=== PATIENT | female | born 1960 | race Caucasian/White ===

== ENCOUNTER 2018-07-30 20:58 | Emergency (ER) | payer MEDICARE, OTHER ==
[2018-07-30 21:24] VITALS: BP 139/60
[2018-07-30] MEDS ORDERED: Doxycycline 100 MG Cap PO ONE (21:31)
--- NOTE | 2018-07-30 21:38 | EDM.PDOC ---
ED HPI GENERAL MEDICAL PROBLEM - General Chief Complaint: Skin Complaint Stated Complaint: 2 PAINFUL LUMPS ON LEFT ARM Time Seen by Provider: 07/30/18 21:16 Source of Information: Reports: Patient, RN Notes Reviewed History Limitations: Reports: No Limitations - History of Present Illness INITIAL COMMENTS - FREE TEXT/NARRATIVE: Patient is a 58-year-old female who presents to the ED for the evaluation of 2 painful lumps on her left arm. One is located on the dorsum of her left hand, the other is located on the dorsum of her upper left forearm. She states that last Sunday, 8 days ago, she hit the door of a pickup with her hand and had this resultant lump. She noted 2 days later that she hit her left arm again and another lump appeared. She now notes that the lump on her hand is turn purple in color, and is warm to the touch with some slight reddening around it. She notes it is getting to be more painful to move her left wrist at this time. She notes she is on Coumadin, and does appear to be bruised all the way up into her elbow. It is from [place], her primary care provider is Leticia Zamora. She states she has not taken any pain medications for this. He also notes that she is not an IV drug user. Hand Pain Score (Numeric/FACES): 8 - Related Data Allergies Allergy/AdvReac Type Severity Reaction Status Date / Time Penicillins Allergy Rash Verified 07/30/18 21:14 Home Meds: Home Meds Aspirin [Children's Aspirin] 81 mg PO DAILY 07/30/18 [History] ClonazePAM [KlonoPIN] 0.5 mg PO DAILY 07/30/18 [History] Doxycycline [Vibramycin] 100 mg PO BID #19 tab 07/30/18 [Rx] Escitalopram [Lexapro] 20 mg PO DAILY 07/30/18 [History] Lisinopril [Prinivil] 10 mg PO DAILY 07/30/18 [History] Metoprolol Succinate [Toprol Xl] 25 mg PO DAILY 07/30/18 [History] Omeprazole 20 mg PO DAILY 07/30/18 [History] Warfarin [Coumadin] 5 mg PO DAILY 07/30/18 [History] buPROPion [buPROPion XL] 150 mg PO DAILY 07/30/18 [History] Past Medical History HEENT History: Reports: Impaired Vision Cardiovascular History: Reports: High Cholesterol Respiratory History: Reports: None Other Respiratory History: 25pk yr smoker Genitourinary History: Reports: None [employer] History: Reports: Musculoskeletal History: Reports: Arthritis Other Musculoskeletal History: multiple level degeneration disease Neurological History: Reports: CVA Psychiatric History: Reports: Anxiety, Depression Endocrine/Metabolic History: Reports: None Hematologic History: Reports: None Immunologic History: Reports: None Oncologic (Cancer) History: Reports: None Dermatologic History: Reports: None - Infectious Disease History Infectious Disease History: Reports: Measles - Past Surgical History Respiratory Surgical History: Reports: None GI Surgical History: Reports: Appendectomy Female Surgical History: Reports: Section Social & Family History - Family History Family Medical History: Noncontributory Endocrine/Metabolic: Reports: Diabetes, type II - Caffeine Use Caffeine Use: Reports: Coffee - Recreational Drug Use Recreational Drug Use: No ED ROS GENERAL - Review of Systems Review Of Systems: See Below Constitutional: Denies: Fever, Chills Respiratory: Reports: No Symptoms Cardiovascular: Reports: No Symptoms Endocrine: Reports: No Symptoms GI/Abdominal: Reports: No Symptoms : Reports: No Symptoms Musculoskeletal: Reports: Arm Pain (left upper forearm), Hand Pain (left hand) Skin: Reports: Bruising, Erythema, Change in Color (mild bruising to entire left arm.). Denies: Wound Neurological: Reports: No Symptoms Psychiatric: Reports: No Symptoms Hematologic/Lymphatic: Reports: No Symptoms Immunologic: Reports: No Symptoms ED EXAM, SKIN/RASH Exam: See Below Exam Limited By: No Limitations General Appearance: Alert, WD/WN, No Apparent Distress Respiratory/Chest: No Respiratory Distress, Lungs Clear, Normal Breath Sounds, No Accessory Muscle Use, Chest Non-Tender Cardiovascular: Normal Peripheral Pulses, Regular Rate, Rhythm, No Murmur Peripheral Pulses: 3+: Radial (L), Radial (R) Extremities: Normal Capillary Refill, Joint Swelling (left wrist), Limited Range of Motion (of left wrist d/t pain), Increased Warmth (around lump on dorsum of left hand), Redness (to dorsum of left hand) Neurological: Alert, Oriented, Normal Cognition, No Motor/Sensory Deficits Psychiatric: Normal Affect, Normal Mood Skin: Warm, Dry, Intact, Ecchymosis (The entire left arm is ecchymotic up until the elbow. There are 2 discrete lumps, one on the dorsum of her left hand on her wrist joint, the other onto her dorsum of her upper left forearm. The lump on her wrist is dark purple in color with mild redness and warmth noted to around the lump. She states that her left wrist is becoming more painful to move due to the increasing redness in the lump on her left hand.) Location, Skin: Upper Extremity, Left Associated features: Warmth, Tenderness Course - Vital Signs Last Recorded V/S: Last Vital Signs Temp 98.0 F 07/30/18 21:22 Pulse 73 07/30/18 21:22 Resp 14 07/30/18 21:22 BP 139/60 07/30/18 21:22 Pulse Ox 98 07/30/18 21:22 - Orders/Labs/Meds Meds: Medications Discontinued Medications Generic Name Dose Route Start Last Admin Trade Name Freq PRN Reason Stop Dose Admin Doxycycline Hyclate 100 mg 07/30/18 21:31 07/30/18 21:39 Vibramycin PO 07/30/18 21:32 100 mg ONETIME ONE Administration - Re-Assessments/Exams Free Text/Narrative Re-Assessment/Exam: 07/30/18 21:51 Patient presents to the ED for the evaluation of painful lumps on her left arm. The lump on her dorsum of her left wrist, is suspicious for cellulitis I have given her 1 dose of doxycycline in the ED and given her a continued prescription for this at the pharmacy of her [facility] located in [place]. These lumps should likely resolve on their own. I have told her that she may take Tylenol for pain relief. She is okay with this plan. Departure - Departure Time of Disposition: 21:36 Disposition: Home, Self-Care 01 Condition: Fair Clinical Impression: Traumatic hematoma Cellulitis Qualifiers: Site of cellulitis: extremity Site of cellulitis of extremity: upper extremity Laterality: left Qualified Code(s): L03.114 - Cellulitis of left upper limb - Discharge Information *PRESCRIPTION DRUG MONITORING PROGRAM REVIEWED*: No *COPY OF PRESCRIPTION DRUG MONITORING REPORT IN PATIENT TANISHA: No Prescriptions: Doxycycline [Vibramycin] 100 mg PO BID #19 tab Instructions: Cellulitis, Adult, [id number] Referrals: Isidra Zamora NP [Primary Care Provider] - Forms: ED Department Discharge Additional Instructions: You have been evaluated in the ED for your painful lumps on your left arm. These are traumatic hematomas, the hematoma on your hand however does have some mild cellulitis surrounding it. You have been given a prescription for doxycycline, 100 mg twice a day for 10 days. This has been electronically sent to the [facility] located in [place]. These hematomas will likely resolve on their own, they will be slightly painful for a while, the antibiotics should take effect in roughly 48 hours. Please use ice as tolerated to the affected area. You may take tylenol 500 mg q6 hrs for pain relief. Please do so until you have a tolerable level of pain with activity. Do not exceed 4000mg tylenol in a 24 hour time period Please return to ED if your symptoms should change or worsen.
== END 2018-07-30 22:01 | disposition home or self-care (01) ==
LOC: JD.ED 20:58
DX: S50.02XA Contusion of left elbow, initial encounter (principal); S50.12XA Contusion of left forearm, initial encounter; S60.212A Contusion of left wrist, initial encounter; L03.114 Cellulitis of left upper limb; E78.00 Pure hypercholesterolemia, unspecified; F41.9 Anxiety disorder, unspecified; F32.9 Major depressive disorder, single episode, unspecified; Z79.82 Long term (current) use of aspirin; Z88.0 Allergy status to penicillin; X58.XXXA Exposure to other specified factors, initial encounter
CPT/HCPCS: 99283; A9270

== ENCOUNTER 2019-04-24 13:16 | Emergency (ER) | payer MEDICARE ==
[2019-04-24 13:39] VITALS: BP 144/74; PULSE 89
--- NOTE | 2019-04-24 14:11 | EDM.PDOC ---
ED HPI GENERAL MEDICAL PROBLEM - General Chief Complaint: Behavioral/Psych Stated Complaint: DEPRESSION SENT BY [facility] Time Seen by Provider: 04/24/19 13:36 Source of Information: Reports: Patient, RN Notes Reviewed History Limitations: Reports: No Limitations - History of Present Illness INITIAL COMMENTS - FREE TEXT/NARRATIVE: Patient is a 59-year-old female who presents to the ED with her family members for the evaluation of depression. Patient lives at [facility]. The family members note that the patient had a stroke in August, patient can comprehend things, but has a hard time expressing what she is saying. She had a regular appointment with her provider today, Dr. Wallace at [place], for increased anxiety issues. It was reported to our facility that she was taking 2000 mg of Tylenol 4 times a day. Upon inspection of the patient's medication administration record, it appears that she was scheduled to have 500 mg x 2 tabs every 6 hours as needed. So it would appear that she was getting 1000 mg every 6 hours not 2000 mg. The patient's family notes that she does not have access to Tylenol, that she is given this by the [place] staff. Did ask the patient specifically if she was taking too much Tylenol in an attempt to end her life, and she said no, she further states that she is not suicidal. The family members note that this time a year is rather hard on their mother, and states that she has been more sad than she normally is for the past 2 or 3 days. They went to Dr. Wallace, to try to get her psychiatric medication adjusted. They note that she has issues with this pretty much every year at this time of year, and she does not seem to be acting inappropriate for herself. Patient states that she does not have a fever or chills, no cough no shortness of breath, no nausea no vomiting no diarrhea. She states that she had a very small bowel movement this morning, however she does not feel as if she emptied her bowel completely so she feels a little bit constipated and had some generalized abdominal pain due to this. - Related Data Allergies Allergy/AdvReac Type Severity Reaction Status Date / Time Penicillins Allergy Rash Verified 07/30/18 21:14 Home Meds: Home Meds Aspirin [Children's Aspirin] 81 mg PO DAILY 07/30/18 [History] ClonazePAM [KlonoPIN] 0.5 mg PO DAILY 07/30/18 [History] Doxycycline [Vibramycin] 100 mg PO BID #19 tab 07/30/18 [Rx] Escitalopram [Lexapro] 20 mg PO DAILY 07/30/18 [History] Metoprolol Succinate [Toprol Xl] 25 mg PO DAILY 07/30/18 [History] Omeprazole 20 mg PO DAILY 07/30/18 [History] Warfarin [Coumadin] 5 mg PO DAILY 07/30/18 [History] buPROPion [buPROPion XL] 150 mg PO DAILY 07/30/18 [History] lisinopriL [Prinivil] 10 mg PO DAILY 07/30/18 [History] Past Medical History HEENT History: Reports: Impaired Vision Cardiovascular History: Reports: High Cholesterol [employer] History: Reports: Musculoskeletal History: Reports: Arthritis Other Musculoskeletal History: multiple level degeneration disease Neurological History: Reports: CVA (August 2018, has issues communicating, can comprehend well) Psychiatric History: Reports: Anxiety, Depression - Infectious Disease History Infectious Disease History: Reports: Measles - Past Surgical History GI Surgical History: Reports: Appendectomy Female Surgical History: Reports: Section Social & Family History - Family History Family Medical History: Noncontributory Endocrine/Metabolic: Reports: Diabetes, type II - Tobacco Use Smoking Status *Q: Former Smoker (25 pack year history) - Caffeine Use Caffeine Use: Reports: Coffee, Soda - Recreational Drug Use Recreational Drug Use: No ED ROS GENERAL - Review of Systems Review Of Systems: See Below Constitutional: Denies: Fever, Chills Respiratory: Denies: Shortness of Breath Cardiovascular: Denies: Chest Pain GI/Abdominal: Reports: Abdominal Pain (generalized), Constipation. Denies: Diarrhea, Nausea, Vomiting : Denies: Dysuria, Frequency, Urgency Neurological: Reports: Pre-Existing Deficit (Stroke August 2018), Trouble Speaking (d/t stroke August 2018). Denies: Confusion Psychiatric: Reports: Anxiety, Depression. Denies: Suicidal Ideation ED EXAM, GENERAL - Physical Exam Exam: See Below Exam Limited By: No Limitations General Appearance: Alert, WD/WN, No Apparent Distress Eye Exam: Bilateral Eye: EOMI, Normal Inspection, PERRL Ears: Normal External Exam, Normal TMs Nose: Normal Inspection Throat/Mouth: Normal Inspection, Normal Lips, Normal Teeth, Normal Gums, Normal Oropharynx, Normal Voice, No Airway Compromise Head: Atraumatic, Normocephalic Neck: Normal Inspection Respiratory/Chest: No Respiratory Distress, Lungs Clear, Normal Breath Sounds, No Accessory Muscle Use, Chest Non-Tender Cardiovascular: Normal Peripheral Pulses, Regular Rate, Rhythm, No Edema, No Murmur Peripheral Pulses: 3+: Radial (L), Radial (R) GI/Abdominal: Normal Bowel Sounds, Soft, Non-Tender, No Distention, No Mass Extremities: Normal Inspection, Normal Capillary Refill Neurological: Alert (acting appropriate for herself) Psychiatric: Normal Affect, Normal Mood Skin Exam: Warm, Dry, Intact, Normal Color, No Rash Course - Vital Signs Last Recorded V/S: Last Vital Signs Temp 97.5 F 04/24/19 13:36 Pulse 89 04/24/19 13:36 Resp 20 04/24/19 13:36 BP 144/74 H 04/24/19 13:36 Pulse Ox 92 L 04/24/19 13:36 - Orders/Labs/Meds Orders: Active Orders 24 hr Category Date Time Status UA W/MICROSCOPIC [URIN] Stat Lab 04/24/19 14:00 Received Labs: Laboratory Tests 04/24/19 04/24/19 04/24/19 Range/Units 14:00 14:02 14:15 WBC 10.46 H (3.98-10.04) K/mm3 RBC 4.25 (3.98-5.22) M/mm3 Hgb 13.2 (11.2-15.7) gm/dl Hct 38.3 (34.1-44.9) % MCV 90.1 (79.4-94.8) fl MCH 31.1 (25.6-32.2) pg MCHC 34.5 (32.2-35.5) g/dl RDW Std Deviation 41.9 (36.4-46.3) fL Plt Count 238 (182-369) K/mm3 MPV 9.3 L (9.4-12.3) fl Neut % (Auto) 73.3 H (34.0-71.1) % Lymph % (Auto) 19.3 (19.3-51.7) % Dawes % (Auto) 6.1 (4.7-12.5) % Eos % (Auto) 0.9 (0.7-5.8) Baso % (Auto) 0.2 (0.1-1.2) % Neut # (Auto) 7.67 H (1.56-6.13) K/mm3 Lymph # (Auto) 2.02 (1.18-3.74) K/mm3 Dawes # (Auto) 0.64 H (0.24-0.36) K/mm3 Eos # (Auto) 0.09 (0.04-0.36) K/mm3 Baso # (Auto) 0.02 (0.01-0.08) K/mm3 Sodium (136-145) mEq/L Potassium (3.5-5.1) mEq/L Chloride (98-107) mEq/L Carbon Dioxide (21-32) mEq/L Anion Gap (5-15) BUN (7-18) mg/dL Creatinine (0.55-1.02) mg/dL Est Cr Clr Drug Dosing mL/min Estimated GFR (MDRD) (>60) mL/min BUN/Creatinine Ratio (14-18) Glucose (74-106) mg/dL Calcium (8.5-10.1) mg/dL Total Bilirubin (0.2-1.0) mg/dL AST (15-37) U/L ALT (14-59) U/L Alkaline Phosphatase (46-116) U/L Total Protein (6.4-8.2) g/dl Albumin (3.4-5.0) g/dl Globulin gm/dL Albumin/Globulin Ratio (1-2) Urine Color Yellow (Yellow) Urine Appearance Clear (Clear) Urine pH 6.0 (5.0-8.0) Ur Specific Gaston 1.020 (1.005-1.030) Urine Protein Negative (Negative) Urine Glucose (UA) Negative (Negative) Urine Ketones Negative (Negative) Urine Occult Blood Trace-intact H (Negative) Urine Nitrite Negative (Negative) Urine Bilirubin Negative (Negative) Urine Urobilinogen 0.2 (0.2-1.0) Ur Leukocyte Esterase Negative (Negative) Urine Opiates Screen Negative (FADFFV=866) Ur Buprenorphine Scrn Negative (CUTOFF=10) Ur Oxycodone Screen Negative (NGS1FY=890) Urine Methadone Screen Negative (PPEGND=271) Ur Propoxyphene Screen Negative (PXAHRU=363) Acetaminophen (10-30) ug/mL Ur Barbiturates Screen Negative (VKRNME=577) Ur Tricyclics Screen Negative (FNUXFT=248) Ur Phencyclidine Scrn Negative (CUTOFF=25) Ur Amphetamine Screen Negative (VIGGVQ=035) U Methamphetamines Scrn Negative (MTTXXA=509) U Benzodiazepines Scrn Negative (FNFCAA=017) U Cocaine Metab Screen Negative (UPBSGW=666) U Marijuana (THC) Screen Negative (CUTOFF=50) 04/24/19 Range/Units 14:15 WBC (3.98-10.04) K/mm3 RBC (3.98-5.22) M/mm3 Hgb (11.2-15.7) gm/dl Hct (34.1-44.9) % MCV (79.4-94.8) fl MCH (25.6-32.2) pg MCHC (32.2-35.5) g/dl RDW Std Deviation (36.4-46.3) fL Plt Count (182-369) K/mm3 MPV (9.4-12.3) fl Neut % (Auto) (34.0-71.1) % Lymph % (Auto) (19.3-51.7) % Dawes % (Auto) (4.7-12.5) % Eos % (Auto) (0.7-5.8) Baso % (Auto) (0.1-1.2) % Neut # (Auto) (1.56-6.13) K/mm3 Lymph # (Auto) (1.18-3.74) K/mm3 Dawes # (Auto) (0.24-0.36) K/mm3 Eos # (Auto) (0.04-0.36) K/mm3 Baso # (Auto) (0.01-0.08) K/mm3 Sodium 139 (136-145) mEq/L Potassium 4.0 (3.5-5.1) mEq/L Chloride 103 (98-107) mEq/L Carbon Dioxide 28 (21-32) mEq/L Anion Gap 12.0 (5-15) BUN 14 (7-18) mg/dL Creatinine 0.9 (0.55-1.02) mg/dL Est Cr Clr Drug Dosing 64.64 mL/min Estimated GFR (MDRD) > 60 (>60) mL/min BUN/Creatinine Ratio 15.6 (14-18) Glucose 131 H (74-106) mg/dL Calcium 9.1 (8.5-10.1) mg/dL Total Bilirubin 0.3 (0.2-1.0) mg/dL AST 19 (15-37) U/L ALT 22 (14-59) U/L Alkaline Phosphatase 73 (46-116) U/L Total Protein 7.5 (6.4-8.2) g/dl Albumin 4.2 (3.4-5.0) g/dl Globulin 3.3 gm/dL Albumin/Globulin Ratio 1.3 (1-2) Urine Color (Yellow) Urine Appearance (Clear) Urine pH (5.0-8.0) Ur Specific Gaston (1.005-1.030) Urine Protein (Negative) Urine Glucose (UA) (Negative) Urine Ketones (Negative) Urine Occult Blood (Negative) Urine Nitrite (Negative) Urine Bilirubin (Negative) Urine Urobilinogen (0.2-1.0) Ur Leukocyte Esterase (Negative) Urine Opiates Screen (UDHWSQ=554) Ur Buprenorphine Scrn (CUTOFF=10) Ur Oxycodone Screen (BFK5UH=835) Urine Methadone Screen (XGKFMQ=644) Ur Propoxyphene Screen (RPGZTN=949) Acetaminophen 0 L (10-30) ug/mL Ur Barbiturates Screen (HFSLQU=739) Ur Tricyclics Screen (LWZVQR=184) Ur Phencyclidine Scrn (CUTOFF=25) Ur Amphetamine Screen (SLHNWV=994) U Methamphetamines Scrn (ZMSXEQ=081) U Benzodiazepines Scrn (HBCJCE=588) U Cocaine Metab Screen (SJOFGZ=788) U Marijuana (THC) Screen (CUTOFF=50) - Re-Assessments/Exams Free Text/Narrative Re-Assessment/Exam: 04/24/19 14:15 Patient presents to the ED for the evaluation of her depression. I do believe there is somewhat of a miscommunication, regarding the patient's Tylenol administration. Nonetheless, we will obtain some labs to include CBC, CMP, acetaminophen level, UA and urine drug screen for further evaluation. Patient is acting appropriate per herself, she is not suicidal at this time, I do not believe she would need any sort of inpatient psychiatric admission. If laboratory evaluation is unremarkable, we will have her follow-up with her regular care provider for further management. 04/24/19 15:26 Lab work is back, demonstrates no focal abnormalities. Acetaminophen level is 0 at this time. Patient not complaining of anything else. Will discharge home with general recommendations. Departure - Departure Time of Disposition: 15:27 Disposition: Home, Self-Care 01 Condition: Fair Clinical Impression: Mental health-related complaint Depression Qualifiers: Depression Type: other depression Qualified Code(s): F32.89 - Other specified depressive episodes - Discharge Information *PRESCRIPTION DRUG MONITORING PROGRAM REVIEWED*: No *COPY OF PRESCRIPTION DRUG MONITORING REPORT IN PATIENT TANISHA: No Referrals: Nilda Wallace MD [Primary Care Provider] - Forms: ED Department Discharge Additional Instructions: You were evaluated in the ER today regarding your possible Tylenol overdose, and depression. Laboratory evaluation demonstrates that you are not suffering from a Tylenol overdose, your other laboratory evaluation was also unremarkable. Recommend that you talk with your regular provider, for an adjustment of your chronic antidepression medications if they should deem it necessary. At this visit, you are not deemed a suicide risk. Please return to the ER at any time however if your symptoms change or worsen. Sepsis Event Note - Evaluation Sepsis Screening Result: No Definite Risk - Focused Exam Vital Signs: Vital Signs Temp Pulse Resp BP Pulse Ox 04/24/19 13:36 97.5 F 89 20 144/74 H 92 L Date Exam was Performed: 04/24/19 Time Exam was Performed: 15:30 - My Orders Last 24 Hours: My Active Orders 04/24/19 14:00 UA W/MICROSCOPIC [URIN] Stat - Assessment/Plan Last 24 Hours: My Active Orders 04/24/19 14:00 UA W/MICROSCOPIC [URIN] Stat
[2019-04-24 15:18] LABS: ACETAMINOPHEN 0 ug/mL (10-30)
== END 2019-04-24 15:40 | disposition home or self-care (01) ==
LOC: JD.ED 13:16
DX: F32.89 Other specified depressive episodes (principal); F41.9 Anxiety disorder, unspecified; Z88.0 Allergy status to penicillin; Z79.82 Long term (current) use of aspirin; Z79.899 Other long term (current) drug therapy; Z86.73 Personal history of transient ischemic attack (TIA), and cerebral infarction without residual deficits; Z87.891 Personal history of nicotine dependence
CPT/HCPCS: 36415; 80053; 80306; 81001; 85025; 99284; G0480; 99282